=== PATIENT | male | born 1975 | race Caucasian/White ===

== ENCOUNTER 2021-10-22 19:17 | Inpatient (IN) | payer OTHER, SELFPAY ==
[2021-10-22 19:19] VITALS: BP 146/100; PULSE 100; RESP 16; TEMP 36.7; BMI 31.1
[2021-10-22 19:45] LABS: Absolute Lymphocyte Count 1.72 X10^3/uL (0.83-4.51); Absolute Neutrophil Count 6.7 X10^3/uL (2.0-7.7); Basophil# 0.04 X10^3/uL; Basophil% 0.4 % (0-1); Eosinophil# 0.12 X10^3/uL; Eosinophils% 1.3 % (0-5); Hematocrit 46.9 % (40-54); Lymphocyte # 1.72 X10^3/ul (0.83-4.51); Lymphocyte % 18.4 % (19-41); Mean Corp Hgb Conc 34.1 g/dL (32-36); Mean Corpuscular Hgb 34.5 pg (27.0-32.0); Mean Corpuscular Volume 101.1 fL (80-94); Mean Platelet Vol. 10.9 fl (6.2-12.0); Monocyte# 0.74 X10^3/uL; Monocyte% 7.9 % (0-10); NRBC Flagged by Analyzer 0 % (0-5); Neutrophil # 6.68 X10^3/uL (2.7-7.7); Neutrophil % 71.6 % (47-70); Platelet Count 141 K/mm3 (150-450); RBC Distribution Width CV 13.2 % (11.6-14.6); RBC Distribution Width SD 48.8 fl (35.1-43.9); Red Blood Count 4.64 M/mm3 (4.6-6.2); White Blood Count 9.3 K/mm3 (4.4-11.0)
--- NOTE | 2021-10-22 19:55 | EX.ED.DYSGE1 ---
HPI History of Present Illness Chief Complaint: General Illness Informant: patient Narrative Narrative: 46-year-old male presenting to the emergency department requesting alcohol detox. Patient states that his drink of choice is vodka. He drinks 2 he passes out after work. Weekends he tends to start drinking first thing in the morning. He states its affecting his family and his work life. He states it is time to stop drinking. He went to [facility] which could not accept his insurance and was referred here. He gave him a phenobarbital dose before he left. Patient has no pending legal issues. He states he is otherwise a healthy individual. [facility] Medical History (Updated 10/22/21 @ 20:[address] Stormy Santillan, DO) ETOH abuse Tobacco abuse Home Medications NK 10/22/21 [History Last Taken Unknown] Allergy/AdvReac Type Severity Reaction Status Date / Time No Known Allergies Allergy Verified 10/22/21 19:22 Social History (Updated 10/22/21 @ 19:[address] Pete Torre, DO) Smoking Status: Current every day smoker tobacco type: cigarettes alcohol intake: current alcohol intake frequency: 3 or more drinks per day ROS ROS ED Constitutional Constitutional ED: Reports sweats; Denies chills or weight loss Eyes Eyes: Denies change in vision or diplopia ENT ENT ED: Denies ear pain, rhinorrhea or sore throat Cardiovascular Cardiovascular: Denies chest pain, orthopnea, palpitations or racing heartbeat Respiratory/Chest Respiratory/Chest: Denies cough, dyspnea or orthopnea Gastrointestinal Gastrointestinal: Reports abdominal pain and nausea; Denies diarrhea or vomiting Genitourinary Genitourinary ED: Denies dysuria, hematuria or urinary frequency Musculoskeletal Musculoskeletal: Denies arthralgias or myalgias Integumentary Denies abscess or rash Neurologic Neurologic: Denies headache(s) or weakness Psychiatric Psychiatric: Denies anxiety, depression, suicidal ideation or suicidal thoughts Endocrine Endocrinology: Denies polydipsia, polyphagia or polyuria Allergic/Immunologic Allergic/Immunologic ED: Denies mouth swelling, tongue swelling or urticaria EXAM Physical Exam Const Vital Signs: 10/22/21 19:19 10/22/21 19:19 Temperature 98.0 F 98.0 F Temperature Source Temporal Temporal Pulse Rate 100 100 Respiratory Rate 16 16 Blood Pressure 146/100 H 146/100 H Blood Pressure Mean 115 115 Positive well nourished and well developed General Appearance ED: well developed HEENT Reports normocephalic, head/scalp atraumatic and moist mucous membranes Eyes PERRL and EOMs intact bilaterally Neck no lymphadenopathy, supple and no JVD Resp normal respiratory effort and clear to auscultation bilaterally Cardio regular rhythm and no murmurs Rate: tachycardic GI normal to inspection, nondistended, normoactive bowel sounds and non-tender Palpation: soft Back/Spine no CVA tenderness and normal ROM Extremity normal to inspection General Extremety ED: Negative for edema General Extremity: Negative for edema Neuro oriented x3 and CN's II-XII intact bilaterally Sensorium / Orientation: alert Motor Exam: strength 5/5 throughout Psych mental status grossly normal Mood & Affect: tearful; Negative for depressed Skin no rashes or lesions noted and no wounds MDM MDM MDM Narrative Medical decision making narrative: Medical screening labs will be obtained. I will speak with the hospitalist regarding admission. After speaking with registration the patient's insurance is technically out of network for us. I had registration speak with the family and the patient. They would still like to be admitted as a self-pay with deposit and then submitted to insurance company after the fact. Lab Data Attestation: I reviewed the patient's lab results. Labs: Laboratory Results - last 24 hr 10/22/21 10/22/21 10/22/21 19:30 19:30 19:30 WBC 9.3 RBC 4.64 Hgb 16.0 Hct 46.9 MCV 101.1 H MCH 34.5 H MCHC 34.1 RDW Std Deviation 48.8 H RDW Coeff of Erika 13.2 Plt Count 141 L MPV 10.9 Immature Gran % (Auto) 0.400 Neut % (Auto) 71.6 H Lymph % (Auto) 18.4 L Winn % (Auto) 7.9 Eos % (Auto) 1.3 Baso % (Auto) 0.4 Absolute Neuts (auto) 6.7 Absolute Lymphs (auto) 1.72 Nucleated RBC % 0 PT 12.0 INR 0.9 Sodium 139 Potassium 3.7 Chloride 106 Carbon Dioxide 28.0 Anion Gap 5 BUN 13 Creatinine 1.05 Estim Creat Clear Calc 91.73 Est GFR (MDRD) Af Amer 98 Est GFR (MDRD) Non-Af 81 BUN/Creatinine Ratio 12.4 Glucose 112 H Calcium 9.5 Total Bilirubin 0.50 AST 34 ALT 37 Alkaline Phosphatase 71 Total Protein 7.4 Albumin 3.8 Globulin 3.6 Albumin/Globulin Ratio 1.1 Ur Drug Screen Comment Ethyl Alcohol 10/22/21 10/22/21 19:30 19:40 WBC RBC Hgb Hct MCV MCH MCHC RDW Std Deviation RDW Coeff of Erika Plt Count MPV Immature Gran % (Auto) Neut % (Auto) Lymph % (Auto) Winn % (Auto) Eos % (Auto) Baso % (Auto) Absolute Neuts (auto) Absolute Lymphs (auto) Nucleated RBC % PT INR Sodium Potassium Chloride Carbon Dioxide Anion Gap BUN Creatinine Estim Creat Clear Calc Est GFR (MDRD) Af Amer Est GFR (MDRD) Non-Af BUN/Creatinine Ratio Glucose Calcium Total Bilirubin AST ALT Alkaline Phosphatase Total Protein Albumin Globulin Albumin/Globulin Ratio Ur Drug Screen Comment Ethyl Alcohol < 3.0 Discharge Plan Dx/Rx/DC Orders Clinical Impression: Alcoholism, Alcohol withdrawal Disposition Disposition: Acute Care Hospital [facility]
[2021-10-22 20:01] LABS: ALB/GLOB Ratio 1.1 RATIO (0.9-2.4); AST(SGOT) 34 U/L (15-37); Alanine Aminotransfer ALT/SGPT 37 U/L (16-61); Albumin, Serum 3.8 g/dL (3.2-5.0); Alkaline Phosphatase 71 U/L (45-117); Anion Gap 5 (5-15); BUN 13 mg/dL (7-18); BUN/Creat Ratio 12.4 RATIO (10-20); Calcium,Total 9.5 mg/dL (8.5-10.1); Chloride 106 mmol/L (98-107); Creatinine, Serum 1.05 mg/dL (0.70-1.30); EST Glomerular Filtration Rate 81 mL/min (>60); Est Glom Filt Rate - Afr Amer 98 mL/min (>60); Estimated Creatinine Clearance 91.73 ml/min; Globulin 3.6 g/dL (2.2-4.2); Glucose 112 mg/dL (74-106); Potassium 3.7 mmol/L (3.5-5.1); Protein, Total 7.4 g/dL (6.4-8.2); Sodium Level 139 mmol/L (136-145)
--- NOTE | 2021-10-22 20:07 | CM.ED ---
Addendum entered by Willow Heller 10/22/21 20:22: Meaghan states that pt does have insurance called [employer] ([place]?). Original Note: Social Work Note SW reviewed chart. Pt is at [facility] for Detox. SW also updated that pt's is requesting POA to be completed at this moment. JAY JAY and Risa CROWE in to speak with pt and pt's Meaghan. Pt confirms that he is at [facility] for Detox. Pt states that he read the rules of the program and is agreeable. SW also noticed that pt does not have a PCP, pt confirms this. SW provided pt with PCP list. SW spoke with pt about HCPOA/LW. Meaghan states that they would like to complete documents before pt's detox gets too bad. JAY JAY spoke with pt and Meaghan about how HCPOA/LW are legal documents and this worker feels that since pt is currently going through Withdrawal, those documents should be completed at a later time once pt is not in withdrawal. Meaghan states that she just wants to be able to advocate for pt and help pt with treatment. JAY JAY informed Meaghan that if she wants updates on pt while he is at [facility] then the RN on the floor can call and provide update. JAY JAY explained that pt will need to make own decisions regarding his treatment and what his plans will be at discharge for continued treatment. JAY JAY asked Meaghan if she and pt are legally and Meaghan states they are. JAY JAY explained that by law then if pt becomes unable to make own decisions then it would go to Meaghan to make HealthCare decisions for pt. Pt states that he would like to do a ROXI so that he can give permission for his . SW informed pt and Meaghan that this worker will update RN. SW provided pt with Advanced Directive documents. Pt states that he was at [facility] and got a shot. SW reviewed chart and it appears pt received Phenobarbital today. Per chart, pt's last drink of ETOH was 1700. Pt states that [facility] said they couldn't admit him due to his insurance not working with their system. Pt states that he does feel like he is having current withdrawal symptoms. PT states that he can drink 2 1.75 in 3 days. Pt states half bottle of the big one. SW updated RN. JAY JAY placed a call to treatment navigator and provided referral. Plan: RENE Heller BEHAVIORAL MODIFICATION ASSISTANT, [employer] TESTER
[2021-10-22 20:17] LABS: International Normalized Ratio 0.9
[2021-10-22 20:18] LABS: Alcohol, Blood (Medical)-Serum < 3.0 mg/dL
--- NOTE | 2021-10-22 20:30 | HP.PCM.HOS_ITS ---
HPI - General General Date of Admission: 10/22/21 Date of Service: 10/22/21 Chief Complaint: Acute alcohol withdrawal HPI Narrative ANDRES TRAYLOR, is a 46 M who presented to the emergency department [facility] on 10/22/2021 requesting alcohol detox. The patient states that his drink of choice currently is vodka and he drinks until he passes out after work and on the weekends he starts drinking in the first thing in the m orning and drinks till the evening. He indicates this is affecting his family and work life and he states he has a lot to live for so he would like to improve the quality of his life. His last drink was at 5 PM this evening. He has been sober previously about 3 years ago and was sober for 3 years. He states he started drinking more heavily recently when there is been some family issues. He went to [facility] earlier today but reported they could not accept his insurance and he was referred here. He was given a dose of phenobarbital before he left. He does indicate he has a family history of alcohol abuse. Vital signs in the emergency department show a temperature of 98.0, heart rate of 100, blood pressure of 146/100 and a respiratory rate of 16. His CBC shows an MCV V elevation and thrombocytopenia with a platelet count of 141. Coags are normal. His chemistry panel is unremarkable. His alcohol level is negative and his tox screen is pending. [facility] Medical History ETOH abuse PTSD (post-traumatic stress disorder) Tobacco abuse Home Medications NK 10/22/21 [History Last Taken Unknown] Allergy/AdvReac Type Severity Reaction Status Date / Time No Known Allergies Allergy Verified 10/22/21 19:22 Family History (Updated 10/22/21 @ 20:[address] Stormy Santillan DO) Other Alcohol abuse Heart disease Hypertension Social History (Updated 10/22/21 @ 20:[address] Stormy Santillan DO) household members: family housing: house current occupational status: employed Smoking Status: Current every day smoker tobacco type: cigarettes Smoking packs per day: 1 Smoking cigarettes per day: 20.0 alcohol intake: current alcohol intake frequency: 3 or more drinks per day Alcohol type: hard liquor substance use type: does not use ROS Constitutional Constitutional: Reports malaise; Denies anorexia, change in weight, chills, fatigue, fever(s), night sweats, weakness or other Eyes Eyes: Denies blurry vision, change in eye color, change in vision, discharge from eye(s), double vision, erythema, eye pain, loss of vision or other ENT HEENT: Denies abnormal hearing, dysphagia, ear pain, epistaxis, headache(s), hearing loss, nasal congestion, nasal discharge, post nasal drip, sinus pressure, sore throat or other Cardiovascular Cardiovascular: Denies chest pain, claudication, dyspnea on exertion, edema, lightheadedness, orthopnea, palpitations, paroxysmal nocturnal dyspnea, rapid heart rate, syncope or other Respiratory/Chest Respiratory/Chest: Denies cough, dyspnea, excessive phlegm production, hemoptysis, productive cough, shortness of breath at rest, shortness of breath with exertion, wheezing or other Gastrointestinal Gastrointestinal: Reports abdominal pain, diarrhea and nausea; Denies coffee ground emesis, constipation, dyspepsia, hematemesis, hematochezia, loose stools, melena, vomiting or other Genitourinary Genitourinary: Denies burning urination, difficulty urinating, dysuria, h ematuria, nocturia, urinary frequency, urinary hesitancy, urinary incontinence, urinary urgency or other Musculoskeletal Musculoskeletal: Denies arthralgias, back pain, joint pain, joint stiffness, joint swelling, myalgias, neck pain or other Neurologic Neurologic: Denies abnormal gait, abnormal speech, confusion, disequilibrium, dizziness, focal weakness, headache(s), numbness, paresthesias, seizure-like activity, seizures, syncope, tingling, tremor(s) or other Psychiatric Psychiatric: Reports depression; Denies anxiety, homicidal ideation, suicidal ideation or other Endocrine Endocrinology: Denies change in body appearance, cold intolerance, excessive sweating, heat intolerance, polydipsia, polyuria or other Hematologic/Lymphatic Hematologic/Lymphatic: Denies anemia, easy bleeding, easy bruising, lymphadenopathy or other Allergic/Immunologic Allergic/Immunologic: Denies rhinitis, hives, eczemia, asthma or other Vital Signs Vital Signs Vital Signs: 10/22/21 19:19 10/22/21 19:19 Temperature 98.0 F 98.0 F Temperature Source Temporal Temporal Pulse Rate 100 100 Respiratory Rate 16 16 Blood Pressure 146/100 H 146/100 H Blood Pressure Mean 115 115 Weight Weight: 98.6 kg Body Mass Index (BMI) 31.1 Physical Exam Const alert, oriented x3, no apparent distress, healthy appearing and well nourished Constitutional Narrative: Middle-aged white male sitting up in bed, appears comfortable and nontoxic, family at bedside General Appearance: cooperative HEENT normocephalic, head/scalp atraumatic, hearing grossly normal bilaterally and moist oral mucous membranes HEENT Narrative: Dentition is fair, Mallampati is 2, no thrush Resp normal respiratory effort and no use of accessory muscles Resp Narrative: Few scattered end expiratory wheezes Auscultation: wheezes; Negative for crackles, rales or rhonchi Cardio regular rate, regular rhythm, S1 normal heart sound, S2 normal heart sound, no murmurs, no rub, no gallops, no clicks and no JVD GI normal to inspection, nondistended, normoactive bowel sounds, soft to palpation and non-distended GI Narrative: Very mild tenderness in the epigastrium Palpation: tender Extremity no clubbing, cyanosis or edema Extremity Narrative: 2+ pedal pulses Neuro oriented x3, CN's II-XII intact bilaterally, moves all extremities and no focal motor deficits Sensorium / Orientation: awake and alert Speech: speech normal Motor Exam: strength 5/5 throughout Psych affect normal Psych Narrative: Patient is appropriately interactive however mood appears to be depressed Results Lab / Micro Data Attestation: I reviewed the patient's lab results. Result Diagrams: 10/22/21 19:30 10/22/21 19:30 Labs: Laboratory Results - last 24 hr 10/22/21 19:30: WBC 9.3, RBC 4.64, Hgb 16.0, Hct 46.9, MCV 101.1 H, MCH 34.5 H, MCHC 34.1, RDW Std Deviation 48.8 H, RDW Coeff of Erika 13.2, Plt Count 141 L, MPV 10.9, Immature Gran % (Auto) 0.400, Neut % (Auto) 71.6 H, Lymph % (Auto) 18.4 L, [place] % (Auto) 7.9, Eos % (Auto) 1.3, Baso % (Auto) 0.4, Absolute Neuts (auto) 6.7, Absolute Lymphs (auto) 1.72, Nucleated RBC % 0 10/22/21 19:30: PT 12.0, INR 0.9 10/22/21 19:30: Sodium 139, Potassium 3.7, Chloride 106, Carbon Dioxide 28.0, Anion Gap 5, BUN 13, Creatinine 1.05, Estim Creat Clear Calc 91.73, Est GFR (MDRD) Af Amer 98, Est GFR (MDRD) Non-Af 81, BUN/Creatinine Ratio 12.4, Glucose 112 H, Calcium 9.5, Total Bilirubin 0.50, AST 34, ALT 37, Alkaline Phosphatase 71, Total Protein 7.4, Albumin 3.8, Globulin 3.6, Albumin/Globulin Ratio 1.1 10/22/21 19:30: Ethyl Alcohol < 3.0 10/22/21 19:40: Ur Drug Screen Comment Assessment & Plan Assessment/Plan (1) Alcohol withdrawal: (2) Alcoholism: (3) Thrombocytopenia: PLAN: Plan Acute alcohol withdrawal -Patient drinks fairly heavily predominantly liquor -Has been sober previous for approximately 3 years and states he did well during that time and once that feeling back -Start phenobarbital taper -Start thiamine and folate -Protonix 40 mg daily until discharge for stomach irritation related to alcohol use -Suspect alcohol induced gastritis -Supportive medications as needed -180 consultation -Per patient it is okay to discuss status with and she indicates she would like periodic updates Thrombocytopenia -Suspect related to possible splenomegaly with alcohol abuse versus marrow suppression -Mild at this time -No need to follow Elevated blood pressure -Suspect related to acute withdrawal -Continue to monitor -Patient is on no medications at home Tobacco abuse -Recommend cessation -Nicotine patch History of PTSD -Patient startles easily and asks that he may be awake and slowly as he does come up swinging at times -Patient has not medicated for this -Follow-up with counseling related to the services 180 will provide Obesity -Recommend weight loss DVT prophylaxis -Low risk -Encourage ambulation CODE STATUS -Full code Charges/Coding Visit Charges Inpatient E&M: 91371 Init Hosp L2
[2021-10-22 21:10] VITALS: BP 146/100; PULSE 100; RESP 16; TEMP 36.7; O2SAT 99
[2021-10-22 21:22] LABS: Amphetamine Urine VISTA NEGATIVE (<1000 ng/mL); Barbiturate Urine VISTA POSITIVE (< 200 ng/mL); Benzodiazepine Urine VISTA NEGATIVE (< 200 ng/mL); Cocaine Urine VISTA NEGATIVE (< 300 ng/mL); Ecstacy Urine VISTA NEGATIVE (< 500 ng/mL); Methadone Urine VISTA NEGATIVE (< 300 ng/mL); PCP Urine VISTA NEGATIVE (< 25 ng/mL); THC Urine VISTA NEGATIVE (< 50 ng/mL); Vista UDS pH Range 6
[2021-10-22 21:47] VITALS: BMI 29.5
[2021-10-22 21:50] VITALS: BP 158/79; PULSE 100; RESP 18; TEMP 37.1; O2SAT 94
[2021-10-22] MEDS: Phenobarbital 32.4 MG Tablet 64.8 MG PO (22:26)
[2021-10-22] MEDS: Ondansetron 8 MG Tablet PO (22:27)
[2021-10-22] MEDS: Acetaminophen 325 MG Tablet 650 MG PO (22:28)
[2021-10-22] MEDS: traZODone 100 MG Tablet PO (22:28)
[2021-10-22] MEDS: hydrOXYzine PAM 25 MG Capsule 50 MG PO (22:29)
[2021-10-22] MEDS: 0.9% Saline Lock 10 ML Syringe IV (22:29)
[2021-10-23] VITALS (8 sets, daily range): BP systolic 132–155; BP diastolic 81–105; PULSE 68–98; RESP 16–20; TEMP 36.6–36.9; O2SAT 92–99
[2021-10-23] MEDS: Phenobarbital 32.4 MG Tablet 64.8 MG PO ×6 (02:59→22:16)
--- NOTE | 2021-10-23 09:02 | PN.HOSP_ITS ---
Subjective Subjective Follow-up for acute alcohol withdrawal syndrome. Objective Data Objective Data Vital Signs: Vital Signs Temp Pulse Resp BP Pulse Ox 98.4 F 72 16 132/81 H 92 10/23/21 06:17 10/23/21 06:17 10/23/21 06:17 10/23/21 06:17 10/23/21 06:17 Oxygen Delivery Method Room Air Weight: 206 lb 2.115 oz Body Mass Index (BMI) 29.5 Intake & Output: Intake and Output for Last 24 Hours 10/21/21 10/22/21 10/23/21 23:59 23:59 23:59 Intake Total 600 / 600 Balance 600 / 600 Lab / Micro Data Result Diagrams: 10/22/21 19:30 10/22/21 19:30 Labs: Laboratory Results - last 24 hr 10/22/21 19:30: WBC 9.3, RBC 4.64, Hgb 16.0, Hct 46.9, MCV 101.1 H, MCH 34.5 H, MCHC 34.1, RDW Std Deviation 48.8 H, RDW Coeff of Erika 13.2, Plt Count 141 L, MPV 10.9, Immature Gran % (Auto) 0.400, Neut % (Auto) 71.6 H, Lymph % (Auto) 18.4 L, [place] % (Auto) 7.9, Eos % (Auto) 1.3, Baso % (Auto) 0.4, Absolute Neuts (auto) 6.7, Absolute Lymphs (auto) 1.72, Nucleated RBC % 0 10/22/21 19:30: PT 12.0, INR 0.9 10/22/21 19:30: Sodium 139, Potassium 3.7, Chloride 106, Carbon Dioxide 28.0, Anion Gap 5, BUN 13, Creatinine 1.05, Estim Creat Clear Calc 91.73, Est GFR (MDRD) Af Amer 98, Est GFR (MDRD) Non-Af 81, BUN/Creatinine Ratio 12.4, Glucose 112 H, Calcium 9.5, Total Bilirubin 0.50, AST 34, ALT 37, Alkaline Phosphatase 71, Total Protein 7.4, Albumin 3.8, Globulin 3.6, Albumin/Globulin Ratio 1.1 10/22/21 19:30: Ethyl Alcohol < 3.0 10/22/21 19:40: Urine Opiates Screen NEGATIVE, Urine Methadone Screen NEGATIVE, Ur Barbiturates Screen POSITIVE H, Ur Phencyclidine Scrn NEGATIVE, Ur Amphetamines Screen NEGATIVE, MDMA (Ecstasy) Screen NEGATIVE, U Benzodiazepines Scrn NEGATIVE, Urine Cocaine Screen NEGATIVE, U Cannabinoids Screen NEGATIVE, Ur Drug Screen Comment Physical Exam Narrative Physical exam Patient having tremors. Diffuse muscle aches and joint pain. Patient had mild nausea. Denies delusion seizure or hallucination. General: Awake, Oriented x3, Cooperative. Mild lethargy HEENT: Atraumatic, PERRLA, EOMI, Normocephalic Oral: No Gingival or Mucosal Lesions/ Ulcerations Neck: Supple, No JVD, Negative Carotid Bruits Lungs: Air entry diminished in bilateral lung bases. No crepitation/rhonchi Cardiovascular: Regular rate, Regular Rhythm, Normal S1, Normal S2, No murmurs Abdomen: Soft, mild tenderness over right upper quadrant. Liver not enlarged. Spleen not palpable. Bowel Sounds Present, nondistended. No palpable ascites. : No renal angle tenderness. No suprapubic tenderness. Extremities: No edema, Capillary Refill Less than 3 Seconds Skin: No rashes, No breakdown Musculoskeletal: No Tenderness to Palpation of Joints or Extremities Neurological: Cranial nerves II-XII grossly intact, DTR 2+/4 and Symmetrical, Neuro grossly intact Psych/Mental Status: Flat affect Assessment & Plan Assessment/Plan (1) Alcohol withdrawal: (2) Alcoholism: (3) Thrombocytopenia: PLAN: Plan The patient is admitted with acute alcohol withdrawal syndrome. He drinks until he passes out after work in 1 week. He starts drinking first thing in the morning. Acute alcohol withdrawal syndrome with history of chronic alcohol use disorder with dependence and tolerance: Patient drinks half liter of vodka every day. On weekends he drinks first thing in the morning. Patient is on phenobarbitone as per alcohol order set along with other supportive medications. On thiamine and folic acid. Protonix 40 mg daily. Wanted to is consulted. Patient stated he is scheduled for screening colonoscopy at 46 But not approved by his insurance. Denies history of hematemesis, melena. Never had EGD. Mild thrombocytopenia -Suspect due to chronic alcohol use/bone marrow suppression Elevated blood pressure -Suspect related to acute withdrawal -Continue to monitor -Patient is on no medications at home Tobacco abuse -Recommend cessation -Nicotine patch History of PTSD -Patient startles easily and asks that he may be awake and slowly as he does come up swinging at times -Patient has not medicated for this -Follow-up with counseling related to the services 180 will provide Obesity -Recommend weight loss DVT prophylaxis -Low risk -Encourage ambulation CODE STATUS -Full code Charges/Coding Visit Charges Inpatient E&M: 29140 Subs Hosp L2
[2021-10-23] MEDS: Thiamine Hydrochloride 100 MG Tablet PO (09:23)
[2021-10-23] MEDS: Pantoprazole Sodium 40 MG Tablet PO (09:23)
[2021-10-23] MEDS: Folic Acid 1 MG Tablet PO (09:25)
--- NOTE | 2021-10-23 12:21 | ADDICTION ---
This tech writer met with PT to conduct ASAM, MSE, AUDIT, DUDIT assessments and to plan for d/c. PT A+Ox4 and participated actively. All assessments completed and placed in PT's chart. PT plans to f/u with [facility] outpatient treatment services in [place], [place]. He has an appointment for Thursday 10/26. PT did not indicate a need for transportation post d/c from [facility].
[2021-10-23] MEDS: hydrOXYzine PAM 25 MG Capsule 50 MG PO (13:26)
[2021-10-23] MEDS: Ondansetron 8 MG Tablet PO (13:26)
[2021-10-23] MEDS: Gabapentin 300 MG Capsule PO (13:26)
[2021-10-23] MEDS: traZODone 100 MG Tablet PO (22:16)
[2021-10-23] MEDS: Acetaminophen 325 MG Tablet 650 MG PO (22:16)
[2021-10-23] MEDS: 0.9% Saline Lock 10 ML Syringe IV (22:17)
[2021-10-24 01:49] VITALS: BP 131/83; PULSE 74; RESP 16; TEMP 36.6; O2SAT 93
[2021-10-24] MEDS: Phenobarbital 32.4 MG Tablet 64.8 MG PO ×6 (01:50→22:27)
[2021-10-24 06:42] VITALS: BP 130/84; PULSE 81; RESP 16; TEMP 36.6; O2SAT 93
--- NOTE | 2021-10-24 07:25 | PCM.PN.HOSP ---
Subjective Subjective Follow-up for acute alcohol withdrawal symptoms. Symptoms are better today. Patient able to eat. Denies delusional thoughts. Objective Data Objective Data Vital Signs: Vital Signs Temp Pulse Resp BP Pulse Ox 97.9 F 81 16 130/84 H 93 10/24/21 06:42 10/24/21 06:42 10/24/21 06:42 10/24/21 06:42 10/24/21 06:42 Oxygen Delivery Method Room Air Weight: 206 lb 2.115 oz Body Mass Index (BMI) 29.5 Intake & Output: Intake and Output for Last 24 Hours 10/22/21 10/23/21 10/24/21 23:59 23:59 23:59 Intake Total 2049 Balance 2049 Lab / Micro Data Result Diagrams: 10/22/21 19:30 10/22/21 19:30 Physical Exam Narrative Physical exam Mild muscle aches and joint pain. No nausea, vomiting or diarrhea. Denies delusion seizure or hallucination. General: Awake, Oriented x3, Cooperative. HEENT: Atraumatic, PERRLA, EOMI, Normocephalic Oral: No Gingival or Mucosal Lesions/ Ulcerations Neck: Supple, No JVD, Negative Carotid Bruits Lungs: Air entry diminished in bilateral lung bases. No crepitation/rhonchi Cardiovascular: Regular rate, Regular Rhythm, Normal S1, Normal S2, No murmurs Abdomen: Soft, mild tenderness over right upper quadrant. Liver not enlarged. Spleen not palpable. Bowel Sounds Present, nondistended. No palpable ascites. : No renal angle tenderness. No suprapubic tenderness. Extremities: No edema, Capillary Refill Less than 3 Seconds Skin: No rashes, No breakdown Musculoskeletal: No Tenderness to Palpation of Joints or Extremities Neurological: Cranial nerves II-XII grossly intact, DTR 2+/4 and Symmetrical, Neuro grossly intact Psych/Mental Status: Flat affect Assessment & Plan Assessment/Plan (1) Alcohol withdrawal: (2) Alcoholism: (3) Thrombocytopenia: PLAN: Plan The patient is admitted with acute alcohol withdrawal syndrome. He drinks until he passes out after work in 1 week. He starts drinking first thing in the morning. 1. Acute alcohol withdrawal syndrome with history of chronic alcohol use disorder with dependence and tolerance: Patient drinks half liter of vodka every day. On weekends he drinks first thing in the morning. Patient is on phenobarbitone as per alcohol order set along with other supportive medications. On thiamine and folic acid. Protonix 40 mg daily. Wanted to is consulted. Patient stated he is scheduled for screening colonoscopy at 46 But not approved by his insurance. Denies history of hematemesis, melena. Never had EGD. 10/24: Symptoms are much better. Plan for discharge tomorrow. 2. Mild thrombocytopenia -Suspect due to chronic alcohol use/bone marrow suppression Elevated blood pressure Blood pressure normal. Elevated blood pressure noted to acute alcohol withdrawal syndrome. Tobacco abuse -Recommend cessation -Nicotine patch History of PTSD -Patient startles easily and asks that he may be awake and slowly as he does come up swinging at times -Patient has not medicated for this -Follow-up with counseling related to the services 180 will provide Obesity -Recommend weight loss DVT prophylaxis -Low risk -Encourage ambulation CODE STATUS -Full code Charges/Coding Visit Charges Inpatient E&M: 36533 Subs Hosp L2
[2021-10-24 09:50] VITALS: BP 136/93; PULSE 76; RESP 16; TEMP 36.7; O2SAT 93
[2021-10-24] MEDS: Pantoprazole Sodium 40 MG Tablet PO (09:52)
[2021-10-24] MEDS: Folic Acid 1 MG Tablet PO (09:53)
[2021-10-24] MEDS: Thiamine Hydrochloride 100 MG Tablet PO (09:53)
[2021-10-24] MEDS: Gabapentin 300 MG Capsule PO (10:01)
[2021-10-24] MEDS: hydrOXYzine PAM 25 MG Capsule 50 MG PO ×2 (14:11→22:27)
[2021-10-24] MEDS: Acetaminophen 325 MG Tablet 650 MG PO (14:14)
--- NOTE | 2021-10-24 14:58 | CASEMGMT ---
Social Work As per JAY JAY yesterday, pt's would like pt to complete POA for healthcare papers. Pt also has no insurance. SW met w/pt in room, reviewed POA papers briefly w/pt. SW also reviewed some resources w/pt as he has no insurance. Pt states he is hesitant to complete the papers at present. He states he feels fuzzy in the head. He is also not sure what is going on in regard to insurance, as he states he thought he had insurance. He also explained his wants him to go somewhere for a month, but she is not seeing that he needs to work to pay the bills. Pt also told SW that he was sober and then started drinking again after he lost his uncle and father. He states they both due to drinking. SW offered support and encouragement to pt. SW left resources and POA papers w/pt. AMRITA Pineda
[2021-10-24 16:28] VITALS: BP 128/89; PULSE 76; RESP 18; TEMP 36.7; O2SAT 98
--- NOTE | 2021-10-24 19:58 | NURSING ---
This was the 2nd time today that this RN had a 20min conversation with patients Meaghan. Meaghan wants pt to go to a place called [facility] a place that Meaghan has found. Pt was told about this from this RN but did not say he was going to go or not going to go. Meaghan is aware that pt is A&OX3 and can make his own decisions.
[2021-10-24 22:20] VITALS: BP 143/93; PULSE 81; RESP 16; TEMP 36.7; O2SAT 98
[2021-10-24] MEDS: traZODone 100 MG Tablet PO (22:27)
[2021-10-25 02:54] VITALS: BP 130/87; PULSE 83; RESP 16; TEMP 36.5; O2SAT 98
[2021-10-25] MEDS: Phenobarbital 32.4 MG Tablet 64.8 MG PO ×3 (02:56→11:43)
[2021-10-25 06:15] VITALS: BP 129/88; PULSE 78; RESP 16; TEMP 36.6; O2SAT 94
[2021-10-25] MEDS: hydrOXYzine PAM 25 MG Capsule 50 MG PO ×2 (06:18→11:43)
[2021-10-25] MEDS: Acetaminophen 325 MG Tablet 650 MG PO (06:18)
--- NOTE | 2021-10-25 09:13 | DCINST_ITS ---
Discharge Instructions Diet Discharge Diet: No restrictions Activity Discharge Activity: Return to Normal Activity Weight Bearing Status: Weight bearing as tolerated Follow Up Care Test Results: Test results from this visit will be discussed in further detail at your follow- up appointment, if applicable. Discharge Plan Admission Admit Date/Time: 10/22/21 19:57 Primary Reason for Your Visit: Acute alcohol withdrawal Attending Provider: Yocasta Solorio Primary Care Provider: Care Physician,No Primary Consulting Providers: Stormy Santillan ; Jose Horton Instructions Additional Instructions / Restrictions: You are strongly advised to avoid alcohol or use of any illicit drug. Avoid smoking. Follow-up with your outpatient rehab program as scheduled. Discharge Orders/Prescriptions Prescriptions: No Action NK Referrals / Follow Up: Care Physician,No Primary [Primary Care Provider] - Within 2 Weeks Disposition Disposition (needs filled in before D/C Order can be placed): Home, Self Care
--- NOTE | 2021-10-25 09:23 | PCM.DC.SUM ---
Providers Date of Admission: 10/22/21 Date of Discharge: 10/25/21 Primary Care Physician: Lilian Primary Care Phys Reason For Visit: ACUTE ETOH WITHDRAWL Diagnosis Discharge Diagnosis (1) Alcohol withdrawal: Status: Acute Code(s): F10.239 - Alcohol dependence with withdrawal, unspecified (2) Alcoholism: Status: Acute Code(s): F10.20 - Alcohol dependence, uncomplicated (3) Thrombocytopenia: Status: Acute Code(s): D69.6 - Thrombocytopenia, unspecified Medications at Discharge Home Medications NK 10/22/21 Hospital Course Operations None Procedures None Summary of Care Provided Minutes Spent on Discharge: 35 Hospital Course: 46-year-old male with past medical history of chronic alcohol and nicotine abuse who presents with request for medical stabilization. Patient admits to drinking vodka daily. He usually drinks till he passes out. He wants to quit as it is affecting his family and work life. His last drink was 5 PM prior to admission. His admitting vitals were stable except for blood pressure 146/100. Admitting alcohol level was less than 3. His drug screen was positive for barbiturate. Patient was admitted to the Medr floor and managed on the phenobarbital withdrawal protocol. There were no acute events overnight. Blood pressure became normal without any need for antihypertensive. Patient was seen by the addiction medicine hospital social worker. There is a plan for follow-up with [facility] outpatient treatment services in [facility]. He has an appointment on Thursday 10/26. On the day of discharge, patient was seen and examined. Denied any new complaints. Physical Exam Narrative Physical exam: General: Alert, Oriented x3, Cooperative, No apparent distress HEENT: Atraumatic Oral: Moist Mucosa Neck: Supple Lungs: Clear to auscultation Cardiovascular: HS I+II, regular, no murmurs Abdomen: Bowel Sounds Present, Soft, Non Tender Extremities: No edema Weight / BMI Weight Weight: 93.5 kg Body Mass Index (BMI) 29.5 ABG / Lab / Microbiology Data Result Diagrams: 10/22/21 19:30 10/22/21 19:30 D/C Instructions Discharge Diet: No restrictions Weight Bearing Status: Weight bearing as tolerated Meaningful Use Info Meaningful Use Diagnoses (Choose all that apply): None applicable Discharge Plan Admission Admit Date/Time: 10/22/21 19:57 Primary Reason for Your Visit: Acute alcohol withdrawal Attending Provider: Yocasta Solorio Primary Care Provider: Care Physician,No Primary Consulting Providers: Stormy Santillan ; Jose Horton Instructions Additional Instructions / Restrictions: You are strongly advised to avoid alcohol or use of any illicit drug. Avoid smoking. Follow-up with your outpatient rehab program as scheduled. Discharge Orders/Prescriptions Prescriptions: No Action NK Referrals / Follow Up: Care Physician,No Primary [Primary Care Provider] - Within 2 Weeks Disposition Disposition (needs filled in before D/C Order can be placed): Home, Self Care Charges/Coding Visit Charges Inpatient E&M: [id number] Disch Hosp
[2021-10-25] MEDS: Folic Acid 1 MG Tablet PO (09:49)
[2021-10-25] MEDS: Thiamine Hydrochloride 100 MG Tablet PO (09:49)
[2021-10-25] MEDS: Pantoprazole Sodium 40 MG Tablet PO (09:50)
[2021-10-25 10:03] VITALS: BP 133/90; PULSE 84; RESP 18; TEMP 36.3; O2SAT 96
== END 2021-10-25 12:25 | disposition home or self-care (01) | DRG 897 ==
LOC: ED 20:12 → MS3 20:48
PROVIDERS: Admitting Provider Internal Medicine; Emergency Provider Emergency Medicine; Visit Provider Internal Medicine
DX: F10.239 Alcohol dependence with withdrawal, unspecified (principal); D69.6 Thrombocytopenia, unspecified; F17.210 Nicotine dependence, cigarettes, uncomplicated; R03.0 Elevated blood-pressure reading, without diagnosis of hypertension; E66.9 Obesity, unspecified; F43.10 Post-traumatic stress disorder, unspecified; Z68.29 Body mass index [BMI] 29.0-29.9, adult; Y90.0 Blood alcohol level of less than 20 mg/100 ml
CPT/HCPCS: 80053; 80307; 82077; 85025; 85610; 99251; 99284; 99406; A4216; G0463